=== PATIENT | male | born 2000 | race African-American/Black ===

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

== ENCOUNTER 2020-10-21 21:42 | Emergency (ER) | payer OTHER ==
[~2020-10-21] VITALS: Ht 170.2 cm; Wt 77.1 kg
[2020-10-21] MEDS ORDERED: CYCLOBENZAPRINE5 MG PO (23:04)
[2020-10-21 23:13] VITALS: BP 117/59
== END 2020-10-21 23:15 | disposition home or self-care (01) ==
LOC: ER 21:42
DX: S39.011A Strain of muscle, fascia and tendon of abdomen, initial encounter (principal); J45.909 Unspecified asthma, uncomplicated; Z91.010 Allergy to peanuts; Z88.4 Allergy status to anesthetic agent; Z79.899 Other long term (current) drug therapy; W01.0XXA Fall on same level from slipping, tripping and stumbling without subsequent striking against object, initial encounter; Y93.01 Activity, walking, marching and hiking; Y92.89 Other specified places as the place of occurrence of the external cause; Y99.9 Unspecified external cause status